=== PATIENT | female | born 1940 | race Two or more races ===

== ENCOUNTER 2017-03-12 13:40 | Emergency (ER) | payer OTHER ==
[~2017-03-12] VITALS: Ht 149.9 cm; Wt 49.9 kg
[~2017-03-12 13:40] MED LIST: DICLOZOR1 EACH; OSEL75CA; SYNTHROID50 MCG PO; TYLENOL 8 HOUR650 MG; VASOTEC10 MG PO
[2017-03-12] MEDS ORDERED: PNEU16DI2 (14:08)
[2017-03-12] MEDS ORDERED: MECLIZINE HCL25 MG (14:08)
== END 2017-03-12 18:36 | disposition home or self-care (01) ==
LOC: ER 13:40
DX: B34.9 Viral infection, unspecified (principal)

== ENCOUNTER 2017-03-22 14:58 | Emergency (ER) | payer OTHER ==
[~2017-03-22] VITALS: Ht 149.9 cm; Wt 45.4 kg
[~2017-03-22 14:58] MED LIST changes: +MECLIZINE HCL25 MG; +PNEU16DI2
[2017-03-22] MEDS ORDERED: ROBITUSSIN COU118 M5 (15:26)
[2017-03-22] MEDS ORDERED: NABUMETONE750 MG (15:26)
== END 2017-03-22 20:34 | disposition home or self-care (01) ==
LOC: ER 14:58
DX: J45.909 Unspecified asthma, uncomplicated (principal)

== ENCOUNTER 2017-04-01 10:06 | Emergency (ER) | payer OTHER ==
[~2017-04-01] VITALS: Ht 144.8 cm; Wt 45.4 kg
[~2017-04-01 10:06] MED LIST changes: +NABUMETONE750 MG; +ROBITUSSIN COU118 M5
[2017-04-01] MEDS ORDERED: PNEU16DI2 IJ (10:23)
[2017-04-01] MEDS ORDERED: LEVAQUIN500 MG PO (10:23)
== END 2017-04-01 13:09 | disposition home or self-care (01) ==
LOC: ER 10:06
DX: J06.9 Acute upper respiratory infection, unspecified (principal)

== ENCOUNTER 2017-07-31 11:09 | Emergency (ER) | payer OTHER ==
[~2017-07-31] VITALS: Ht 144.8 cm; Wt 44.5 kg
[~2017-07-31 11:09] MED LIST changes: +LEVAQUIN500 MG PO; +PNEU16DI2 IJ
[2017-07-31] MEDS ORDERED: COZAAR100 MG PO (11:35)
[2017-07-31] MEDS ORDERED: AMLODIPINE BESYL5 MG (11:36)
[2017-07-31] MEDS ORDERED: NEURONTIN300 MG (11:37)
[2017-07-31] MEDS ORDERED: LIPITOR20 MG (11:37)
== END 2017-07-31 17:50 | disposition home or self-care (01) ==
LOC: ER 11:09
DX: R42 Dizziness and giddiness (principal)

== ENCOUNTER → 2017-12-30 | Emergency (ER) | payer OTHER ==
[~2017-12-30] VITALS: Ht 147.3 cm; Wt 43.1 kg
[~2017-12-30] MED LIST changes: +AMLODIPINE BESYL5 MG; +COZAAR100 MG PO; +LIPITOR20 MG; +NEURONTIN300 MG
== END | disposition home or self-care (01) ==
LOC: ER 11:45
DX: M54.2 Cervicalgia (principal); M25.511 Pain in right shoulder

== ENCOUNTER 2017-12-31 19:21 | Emergency (ER) | payer OTHER ==
[~2017-12-31] VITALS: Ht 144.8 cm; Wt 45.4 kg
== END 2017-12-31 21:30 | disposition home or self-care (01) ==
LOC: ER 19:21
DX: M54.2 Cervicalgia (principal); M54.89 Other dorsalgia; M25.512 Pain in left shoulder; M25.511 Pain in right shoulder

== ENCOUNTER 2018-07-30 12:22 | Emergency (ER) | payer OTHER ==
[~2018-07-30] VITALS: Ht 152.4 cm; Wt 43.1 kg
== END 2018-07-30 18:22 | disposition home or self-care (01) ==
LOC: ER 12:22
DX: S01.82XA Laceration with foreign body of other part of head, initial encounter (principal); S80.02XA Contusion of left knee, initial encounter; S90.121A Contusion of right lesser toe(s) without damage to nail, initial encounter; W45.8XXA Other foreign body or object entering through skin, initial encounter; Y93.89 Activity, other specified; Y92.413 State road as the place of occurrence of the external cause; Y99.8 Other external cause status

== ENCOUNTER 2018-08-07 12:55 | Emergency (ER) | payer OTHER ==
[~2018-08-07] VITALS: Ht 144.8 cm; Wt 43.1 kg
== END 2018-08-07 15:22 | disposition home or self-care (01) ==
LOC: ER 12:55
DX: Z48.02 Encounter for removal of sutures (principal)

== ENCOUNTER 2018-10-23 18:35 | Emergency (ER) | payer OTHER ==
[~2018-10-23] VITALS: Ht 149.9 cm; Wt 43.1 kg
== END 2018-10-23 21:54 | disposition home or self-care (01) ==
LOC: ER 18:35
DX: S80.02XA Contusion of left knee, initial encounter (principal); S80.01XA Contusion of right knee, initial encounter; S70.02XA Contusion of left hip, initial encounter; W18.09XA Striking against other object with subsequent fall, initial encounter; Y93.89 Activity, other specified; Y92.018 Other place in single-family (private) house as the place of occurrence of the external cause; Y99.8 Other external cause status

== ENCOUNTER 2018-12-22 17:18 | Emergency (ER) | payer OTHER ==
[~2018-12-22] VITALS: Ht 144.8 cm; Wt 44.0 kg
== END 2018-12-22 21:07 | disposition home or self-care (01) ==
LOC: ER 17:18
DX: B02.9 Zoster without complications (principal); N30.80 Other cystitis without hematuria

== ENCOUNTER 2018-12-27 10:54 | Emergency (ER) | payer OTHER ==
[~2018-12-27] VITALS: Ht 152.4 cm; Wt 43.1 kg
[2018-12-27] MEDS ORDERED: CEPHALEXIN250 MG PO (11:12)
[2018-12-27] MEDS ORDERED: NEURONTIN300 MG PO (11:12)
[2018-12-27] MEDS ORDERED: CLONAZEPAM0.25 MG PO (11:12)
[2018-12-27] MEDS ORDERED: ZOVIRAX800 M1 PO (11:13)
== END 2018-12-27 13:13 | disposition home or self-care (01) ==
LOC: ER 10:54
DX: H92.02 Otalgia, left ear (principal)

== ENCOUNTER 2019-01-08 09:25 | Emergency (ER) | payer OTHER ==
[~2019-01-08] VITALS: Ht 152.4 cm; Wt 43.1 kg
[~2019-01-08 09:25] MED LIST changes: +CEPHALEXIN250 MG PO; +CLONAZEPAM0.25 MG PO; +NEURONTIN300 MG PO; +ZOVIRAX800 M1 PO
[2019-01-08] MEDS ORDERED: LEVOTHYROXINE25 MCG (09:34)
== END 2019-01-08 11:10 | disposition home or self-care (01) ==
LOC: ER 09:25
DX: B02.8 Zoster with other complications (principal)

== ENCOUNTER 2019-01-09 16:51 | Emergency (ER) | payer OTHER ==
[~2019-01-09] VITALS: Ht 149.9 cm; Wt 43.1 kg
[~2019-01-09 16:51] MED LIST changes: +LEVOTHYROXINE25 MCG
== END 2019-01-09 18:39 | disposition home or self-care (01) ==
LOC: ER 16:51
DX: B02.9 Zoster without complications (principal); R68.83 Chills (without fever)

== ENCOUNTER 2019-01-14 16:33 | Emergency (ER) | payer OTHER ==
[~2019-01-14] VITALS: Ht 149.9 cm; Wt 43.1 kg
[2019-01-14] MEDS ORDERED: EC-NAPROSYN500 MG (19:01)
[2019-01-14] MEDS ORDERED: ZOVIRAX800 M1 (19:02)
[2019-01-14] MEDS ORDERED: LIDODERM1 EACH TOP (19:59)
== END 2019-01-14 20:20 | disposition home or self-care (01) ==
LOC: ER 16:33
DX: B02.8 Zoster with other complications (principal)

== ENCOUNTER → 2023-10-06 | Emergency (ER) | payer OTHER ==
[~2023-10-06] VITALS: Ht 149.9 cm; Wt 44.5 kg
[~2023-10-06] MED LIST changes: +EC-NAPROSYN500 MG; +LIDOCAINE HCL 1%/EPINEPHRINE 20ML VIAL IJ ONE; +LIDODERM1 EACH TOP; +ZOVIRAX800 M1
== END | disposition home or self-care (01) ==
LOC: ER 21:04
DX: U07.1 COVID-19 (principal); I10 Essential (primary) hypertension

== ENCOUNTER → 2024-09-07 | Emergency (ER) | payer OTHER ==
[~2024-09-07] VITALS: Ht 149.9 cm; Wt 40.8 kg
[~2024-09-07] MED LIST changes: +DICLOFENAC SODI75 MG PO; +KETOROLAC TROMETHAMINE 30 MG VIAL IM ONE; +KETOROLAC TROMETHAMINE 30 MG VIAL ONE; -LIDOCAINE HCL 1%/EPINEPHRINE 20ML VIAL IJ ONE; +LOSARTAN POTASS50 MG PO; +ORPHENADRINE CITRATE 30 MG/ML AMPUL IM ONE; +ORPHENADRINE CITRATE 30 MG/ML AMPUL ONE
== END | disposition home or self-care (01) ==
LOC: ER 09:59
DX: M54.2 Cervicalgia (principal); M25.512 Pain in left shoulder; M25.511 Pain in right shoulder; M85.88 Other specified disorders of bone density and structure, other site; M51.369 Other intervertebral disc degeneration, lumbar region without mention of lumbar back pain or lower extremity pain; I10 Essential (primary) hypertension; E03.9 Hypothyroidism, unspecified

== ENCOUNTER → 2024-09-10 | Emergency (ER) | payer OTHER ==
[~2024-09-10] VITALS: Ht 149.9 cm; Wt 39.5 kg
[~2024-09-10] MED LIST changes: -KETOROLAC TROMETHAMINE 30 MG VIAL IM ONE; -KETOROLAC TROMETHAMINE 30 MG VIAL ONE; +KETOROLAC TROMETHAMINE 60 MG VIAL IM ONE
== END | disposition home or self-care (01) ==
LOC: ER 12:24
DX: M54.2 Cervicalgia (principal); I10 Essential (primary) hypertension